=== PATIENT | female | born 1975 | race Native Hawaiian/Other Pacific Islander ===

== ENCOUNTER 2017-01-03 17:32 | Inpatient (IN) | payer OTHER ==
[~2017-01-03] VITALS: Ht 149.9 cm; Wt 99.8 kg
--- NOTE | 2017-01-03 08:00 | NUR ---
RECEIVED REPORT FROM ED RN FOR CONTINUITY OF CARE. 41 Y.O. FEMALE BROUGHT TO UNIT WITH DX: ESRD WITH FLUID OVERLOAD. PATIENT IS A&OX4, EXPLAINED PLAN OF CARE TO PATIENT. SHIFT ASSESSMENT DONE, VS TAKEN, PT STABLE. PATIENT HAS NO S/S OF RESPIRATORY DISTRESS NOTED ON 2L O2. PATIENT C/O GENERALIZED PAIN, WILL MEDICATE PER MD ORDER. IV TO LT HAND 22 GAUGE PATENT AND FLUSHED. PT HAS RT UPPER ARM GRAFT AND LT UPPER CHEST CATHETER FOR DIALYSIS. PT "SKIN INTACT", REFUSED SKIN ASSESSMENT ON LOWER HALF OF BODY. SAFETY/FALL PRECAUTIONS ENFORCED. CALL LIGHT WITHIN REACH. WILL CONTINUE TO MONITOR. Addendum: 01/04/17 at 0351 by Guera Garcia RN DISREGARD, WRONG TIME.
[~2017-01-03 17:32] MED LIST: COLACE100 M1 PO; HUMALOG100 UNITS/ SUBQ; KEFLEX500 MG PO; LIPITOR20 MG PO; MOBIC15 MG PO; NOVOLIN 70/30 710 M1 SUBQ; NOVOLOG MIX 70/10 ML SUBQ; RESTORIL15 MG PO; ULTRAM50 MG PO; VICODIN 5/500 M1 TAB PO; [UNRECOGNIZED DRUG - REMARK]
--- NOTE | 2017-01-03 17:32 | NUR ---
Patient BIBA at this time. Currently being triaged in OF.
[2017-01-03 17:41] VITALS: BP 112/57
--- NOTE | 2017-01-03 17:48 | NUR ---
Patient taken to bed 07 via gurney per EMS.
--- NOTE | 2017-01-03 17:53 | NUR ---
Dr. Neumann evaluating patient at bedside.
--- NOTE | 2017-01-03 18:08 | NUR ---
XRAY AT BEDSIDE.
[2017-01-03] MEDS ORDERED: KETOROLAC 30 MG/ML VIAL IVP PRN ×2 (19:00)
[2017-01-03] MEDS ORDERED: MORPHINE SULFATE 2 MG/ML SYR IVP PRN (19:00)
[2017-01-03] MEDS ORDERED: ONDANSETRON 4 MG/2 ML VIAL IVP PRN ×2 (19:00)
[2017-01-03] MEDS ORDERED: ACETAMINOPHEN 325 MG TAB PO PRN ×2 (19:00)
[2017-01-03] MEDS ORDERED: HYDROcodone/APAP 7.5/325 MG 1 TAB PO PRN ×2 (19:00)
--- NOTE | 2017-01-03 19:17 | NUR ---
Patient will be admitted to care of DR. GALEAS Admited to TELE, 110 B Will go to room. Belongings list completed. Report to NIA RATLIFF.
--- NOTE | 2017-01-03 19:19 | NUR ---
CRITICAL LAB REPORT RECEIVED. CREA 7.5. DR. GRAY AWARE.
--- NOTE | 2017-01-03 19:29 | NUR ---
REPORT GIVEN TO NIA WRIGHT. WILL CONTINUE TO CARE FOR THE PT
[2017-01-03 20:00] VITALS: BP 120/63
--- NOTE | 2017-01-03 20:00 | NUR ---
RECEIVED REPORT FROM ED RN FOR CONTINUITY OF CARE. 41 Y.O. FEMALE BROUGHT TO UNIT WITH DX: ESRD WITH FLUID OVERLOAD. PATIENT IS A&OX4, EXPLAINED PLAN OF CARE TO PATIENT. SHIFT ASSESSMENT DONE, VS TAKEN, PT STABLE. PATIENT HAS NO S/S OF RESPIRATORY DISTRESS NOTED ON 2L O2. PATIENT C/O GENERALIZED PAIN, WILL MEDICATE PER MD ORDER. IV TO LT HAND 22 GAUGE PATENT AND FLUSHED. PT HAS RT UPPER ARM GRAFT AND LT UPPER CHEST CATHETER FOR DIALYSIS. PT "SKIN INTACT", REFUSED SKIN ASSESSMENT ON LOWER HALF OF BODY. SAFETY/FALL PRECAUTIONS ENFORCED. CALL LIGHT WITHIN REACH. WILL CONTINUE TO MONITOR.
[2017-01-03] MEDS: MORPHINE SULFATE 2 MG/ML SYR IVP PRN (20:44)
--- NOTE | 2017-01-03 20:44 | NUR ---
PT C/O GENERALIZED PAIN, MEDICATED PER MD ORDER. DIALYSIS NURSE IN WITH PATIENT. CALL LIGHT WITHIN REACH.
--- NOTE | 2017-01-03 23:36 | NUR ---
VS TAKEN, STABLE. PATIENT IS SLEEPING. NO S/S OF RESPIRATORY DISTRESS NOTED ON ROOM AIR.
[2017-01-04] VITALS: BP 119/69
[2017-01-04] MEDS: MORPHINE SULFATE 2 MG/ML SYR IVP PRN ×3 (01:32→12:59)
--- NOTE | 2017-01-04 01:32 | NUR ---
PT C/O 08/30 PAIN, MEDICATED PER MD ORDER. CALL LIGHT WITHIN REACH.
[2017-01-04 04:00] VITALS: BP 131/75
--- NOTE | 2017-01-04 04:12 | NUR ---
VS TAKEN, STABLE. PT ASLEEP. PT DID NOT WANT SCDS AT THIS TIME. CALL LIGHT WITHIN REACH.
[2017-01-04] MEDS ORDERED: DEXTROSE 50% 50 ML SYR IVP PRN (04:15)
[2017-01-04] MEDS: BLOOD GLUCOSE MONITORING 1 DEV DEV FS SCH ×4 (06:05→20:32)
--- NOTE | 2017-01-04 06:05 | NUR ---
BLOOD SUGAR 130, NO COVERAGE NEEDED. PT HAVING INTERMITTENT COUGH WITH CLEAR SPUTUM.
--- NOTE | 2017-01-04 07:25 | NUR ---
ENDORSED PATIENT TO DAYSHIFT RN FOR CONTINUITY OF CARE, PATIENT IS AWAKE IN BED STABLE AT THIS TIME.
--- NOTE | 2017-01-04 07:30 | NUR ---
RECEIVED PT RESTING COMFORTABLY IN BED, AAOX4, ABLE TO VERBALIZE NEEDS; NO C/O PAIN OR S/S ACUTE DISTRESS AT THIS TIME. ASSISTED PT TO REPOSITION FOR COMFORT. ROUTINE/PLAN OF CARE DISCUSSED AND REVIEWED, PT VERBALIZES UNDERSTANDING AND COMPLIANCE; PT SEEN AND ASSESSED BY DR GALEAS AND DR BAILEY AT BEDSIDE. IV SL TO LEFT HAND, SITE ASYMPTOMATIC. LEGALLY BLIND, SAFETY PRECAUTIONS OBSERVED AND MAINTAINED, CALL LIGHT IN REACH. WILL CONTINUE TO MONITOR.
[2017-01-04 08:00] VITALS: BP 136/75
--- NOTE | 2017-01-04 08:57 | NUR ---
VSS; PT REFUSING PO MEDS AT THIS TIME DUE TO NAUSEA, ADMINISTERED ZOFRAN IVP; MORPHINE IVP GIVEN FOR C/O SEVERE BACK PAIN, SEE PAIN ASSESSMENT. WILL CONTINUE TO MONITOR PT.
[2017-01-04] MEDS ORDERED: DOCUSATE SODIUM 100 MG GELCAP PO SCH (09:00)
[2017-01-04] MEDS ORDERED: FAMOTIDINE 20 MG TAB PO SCH (09:00)
[2017-01-04] MEDS: FAMOTIDINE 20 MG TAB PO SCH ×2 (09:00→12:54)
[2017-01-04] MEDS: DOCUSATE SODIUM 100 MG GELCAP PO SCH ×2 (09:00→12:54)
--- NOTE | 2017-01-04 10:02 | NUR ---
PATIENT HAS BEEN SCREENED AND CATEGORIZED HIGH NUTRITION RISK. PATIENT WILL BE SEEN WITHIN 1-2 DAYS OF ADMISSION. 01/04/17-01/05/[address]
--- NOTE | 2017-01-04 10:33 | NUR ---
PT SEEN AND ASSESSED BY DR WORKMAN, NEW ORDERS ACKNOWLEDGED AND CARRIED OUT.
--- NOTE | 2017-01-04 10:59 | NUR ---
ASSISTED PT WITH AM CARE.
[2017-01-04 12:00] VITALS: BP 108/81
--- NOTE | 2017-01-04 13:00 | NUR ---
VSS, NSR. MORPHINE IVP GIVEN ORDERED WITH EDUCATION FOR C/O RECURRING BACK PAIN, SEE PAIN ASSESSMENT. WILL CONTINUE TO MONITOR.
--- NOTE | 2017-01-04 14:04 | NUR ---
SS NOTE: I SPOKE WITH PT BEDSIDE AND PROVIDED HER WITH [facility] INFORMATION SO THAT PT CAN HAVE HER MEDICATIONS DELIVERED TO HER HOME.
[2017-01-04 16:00] VITALS: BP 110/74
[2017-01-04] MEDS: HYDROmorphone 1 MG/ML AMP IVP PRN (16:32)
[2017-01-04] MEDS: INSULIN ASPART SLIDING SCALE 100 UNITS/ML VIAL SUBQ PRN ×2 (16:41→20:28)
[2017-01-04] MEDS ORDERED: PROMETH/CODEINE 6.25-10MG/5ML 5 ML UDC PO PRN (17:55)
--- NOTE | 2017-01-04 19:15 | NUR ---
RECEIVED REPORT FROM DAY RN AT BEDSIDE, PATIENT IS AAO X4, PATIENT IS ON ROOM AIR, NO SOB OR SIGN OF DISTRESS, PATIENT HAS IV TO LEFT HAND#22 PATENT AND SALINE LOCKED. PATIENT SKIN IS INTACT. PATIENT HAS GRAFT TO ANNA FOR HD, BRUIT AND THRILL PRESENT. PATIENT ALSO HAS L UPPER CHEST CATHETER SALINE LOCKED. PATIENT IS BLIND. DISCUSSED PLAN OF CARE WITH PATIENT, PATIENT VERBALIZED UNDERSTANDING. SAFETY MEASURES CHECKED, CALL LIGHT WITHIN REACH. WILL CONTINUE TO MONITOR.
--- NOTE | 2017-01-04 19:24 | NUR ---
CONDITION STABLE, ENDORSED PLAN OF CARE TO CASH MANAGER RN.
[2017-01-04 20:00] VITALS: BP 143/79
[2017-01-04] MEDS: ATORVASTATIN 20 MG TAB PO SCH (20:23)
--- NOTE | 2017-01-04 20:33 | NUR ---
ADMINISTERED PM MEDS, PATIENT TOLERATED WELL, CALL LIGHT WITHIN REACH, WILL CONTINUE TO MONITOR.
--- NOTE | 2017-01-04 21:00 | NUR ---
DIALYSIS NURSE CALLED INQUIRING ABOUT PATIENT DIALYSIS SCHEDULE, CONFIRMED THAT PATIENT IS DUE FOR DIALYSIS 01/05, GAVE DIALYSIS PATIENT'S ROOM NUMBER, CONFIRMED.
--- NOTE | 2017-01-04 23:00 | NUR ---
PATIENT SLEEPING, NO SOB OR SIGN OF DISTRESS, CALL LIGHT WITHIN REACH. WILL CONTINUE TO MONITOR.
--- NOTE | 2017-01-05 00:10 | NUR ---
PATIENT SLEEPING, PATIENT PLACED ON NPO STATUS, PATIENT AWARE, NO SOB OR SIGN OF DISTRESS, CALL LIGHT WITHIN REACH. WILL CONTINUE TO MONITOR.
--- NOTE | 2017-01-05 02:11 | NUR ---
PATIENT SLEEPING, NO SOB OR SIGN OF DISTRESS, CALL LIGHT WITHIN REACH. WILL CONTINUE TO MONITOR.
[2017-01-05] MEDS: HYDROmorphone 1 MG/ML AMP IVP PRN ×2 (02:30→18:55)
--- NOTE | 2017-01-05 03:17 | NUR ---
PATIENT VOMITED 200CC. PATIENT STATED SHE GOT SICK FROM BEING NERVOUS ABOUT HER POSSIBLE PROCEDURE. PATIENT STATES SHE ALWAYS GETS NERVOUS. OFFERED PATIENT SONY, PATIENT STATED SHE DID NOT WANT ANYTHING AND SHE WOULD TRY MUSIC ON HER PHONE TO RELAX HER. WILL CONTINUE TO MONITOR.
[2017-01-05 04:00] VITALS: BP 156/85
--- NOTE | 2017-01-05 05:10 | NUR ---
PATIENT SLEEPING, VITAL SIGNS STABLE, NO SOB OR SIGN OF DISTRESS, CALL LIGHT WITHIN REACH. WILL CONTINUE TO MONITOR.
[2017-01-05] MEDS: BLOOD GLUCOSE MONITORING 1 DEV DEV FS SCH ×4 (06:38→20:11)
--- NOTE | 2017-01-05 07:30 | NUR ---
ENDORSED PATIENT TO DAY RN AT BEDSIDE, PATIENT IN STABLE CONDITION
--- NOTE | 2017-01-05 07:31 | NUR ---
RECEIVED REPORT FROM BIOLOGICS SPECIALIST NIA BENITO. PT IS SLEEPING, A/O X 4, LEGALLY BLIND, AMBULATORY WITH ASSIST. LEFT HAND 22G SL IS INTACT. LEFT UPPER CHEST CATHETER, AND ANNA GRAFT. NO S/S OF ACUTE CARDIAC/RESPIRATORY DISTRESS OR DISCOMFORT. SAFETY MEASURES IN PLACE, CALL LIGHT WITHIN REACH. WILL CONTINUE PLAN OF CARE AND CONTINUE TO MONITOR.
[2017-01-05] MEDS ORDERED: INSULIN HUMAN REGULAR 100 UNITS/ML 10 ML VIAL SUBQ SCH (08:00)
[2017-01-05] MEDS: EPOETIN ALFA 10,000 UNITS/ML VIAL IV SCH (09:00)
[2017-01-05] MEDS ORDERED: guaiFENesin 600 MG TABER PO SCH (09:17)
[2017-01-05] MEDS: DEXT 5% / NACL 0.9% 500 ML IV SCH (10:08)
--- NOTE | 2017-01-05 10:54 | NUR ---
PT IS AWAKE, FEELING ANXIOUS. NO S/S OF ACUTE DISTRESS. PT IN PAIN, WILL MEDICATE. CALL LIGHT WITHIN REACH. WILL CONTINUE TO MONITOR.
[2017-01-05] MEDS: MORPHINE SULFATE 2 MG/ML SYR IVP PRN (11:04)
--- NOTE | 2017-01-05 12:11 | NUR ---
01/05/17 RD INITIAL ASSESSMENT COMPLETED PLEASE REFER TO NUTRITION ASSESSMENT UNDER CARE ACTIVITY FOR ESTIMATED NUTRITIONAL NEEDS. RD RECOMMENDATIONS: 1. CONTINUE NPO MEDICALLY APPROPRIATE PER MD 2. WHEN MEDICALLY APPROPRIATE CONSIDER ADVANCE DIET TOLERATED TO RENAL 3. RD WILL F/U 3-5 DAYS; MODERATE RISK. ZION LANDON RD
--- NOTE | 2017-01-05 12:43 | NUR ---
TRAFFIC ATTENDANT PRESENT. PT STATES SHE FEEL LIGHTHEADED FROM NOT EATING. VS STABLE. NO S/S OF ACUTE DISTRESS OR DISCOMFORT. FAMILY AT BEDSIDE. CALL LIGHT WITHIN REACH. WILL CONTINUE TO MONITOR. Addendum: 01/05/17 at 1245 by Catracho Rm RN BP 132/79, 71, 100%, 98.4F
--- NOTE | 2017-01-05 15:30 | NUR ---
DIALYSIS STILL PROCESSING. PT TOLERATING DIALYSIS WELL, NO S/S OF ACUTE DISTRESS OR DISCOMFORT. CALL LIGHT WITHIN REACH. WILL CONTINUE TO MONITOR.
[2017-01-05 16:00] VITALS: BP 131/73
[2017-01-05] MEDS: INSULIN ASPART SLIDING SCALE 100 UNITS/ML VIAL SUBQ PRN ×2 (17:05→20:09)
--- NOTE | 2017-01-05 17:24 | NUR ---
PT IS RESTING IN BED, ON HER CELL PHONE. PT HAS NO S/S OF ACUTE DISTRESS OR DISCOMFORT. CALL LIGHT WITHIN REACH. WILL CONTINUE TO MONITOR.
--- NOTE | 2017-01-05 19:12 | NUR ---
ENDORSED REPORT TO COMMUNICATIONS SENIOR ASSOCIATE NIA BENITO. PT IS RESTING, MOTHER AT BEDSIDE. NO S/S OF ACUTE DISTRESS OR DISCOMFORT. PT IN STABLE CONDITION. CALL LIGHT WITHIN REACH.
--- NOTE | 2017-01-05 19:15 | NUR ---
RECEIVED REPORT FROM DAY RN AT BEDSIDE, PATIENT IS AAOX4, RESTING IN BED, PATIENT IS LEGALLY BIND, ON ROOM AIR, NO SOB OR SIGN OF DISTRESS. PATIENT HAS ANNA GRAFT FOR HD, BRUIT AND THRILL PRESENT, CATHETER TO JOSEFA CHEST PRESENT. IV TO LH 22G PATENT INTACT AND ASYMPTOMATIC. PATIENT IS TO BE NPO AFTER MIDNIGHT FOR PENDING PROCEDURE, PATIENT AWARE. DISCUSSED PLAN OF CARE WITH PATIENT, PATIENT VERBALIZED UNDERSTANDING, SAFETY MEASURES CHECKED, CALL LIGHT WITHIN REACH. WILL CONTINUE TO MONITOR.
[2017-01-05 20:00] VITALS: BP 124/78
[2017-01-05] MEDS: guaiFENesin 600 MG TABER PO SCH (20:05)
[2017-01-05] MEDS: ATORVASTATIN 20 MG TAB PO SCH (20:05)
--- NOTE | 2017-01-05 20:15 | NUR ---
ADMINISTERED PM MEDS, PATIENT TOLERATED WELL, CALL LIGHT WITHIN REACH. WILL CONTINUE TO MONITOR
--- NOTE | 2017-01-05 21:27 | NUR ---
ASSISTED PATIENT UP TO RESTROOM. PATIENT APPEARS SOB WITH ACTIVITY, PATIENT STATED SHE FELT FINE. ASSISTED BACK TO BED, CALL LIGHT WITHIN REACH. WILL CONTINUE TO MONITOR.
--- NOTE | 2017-01-05 23:19 | NUR ---
PATIENT SLEEPING COMFORTABLE IN BED, NO SOB OR SIGN OF DISTRESS, CALL LIGHT WITHIN REACH, WILL CONTINUE TO MONITOR.
--- NOTE | 2017-01-06 01:44 | NUR ---
PATIENT SLEEPING, NO SOB OR SIGN OF DISTRESS, CALL LIGHT WITHIN REACH. WILL CONTINUE TO MONITOR.
--- NOTE | 2017-01-06 03:05 | NUR ---
PATIENT SLEEPING, NO SOB OR SIGN OF DISTRESS, CALL LIGHT WITHIN REACH. WILL CONTINUE TO MONITOR.
[2017-01-06 04:00] VITALS: BP 166/72
--- NOTE | 2017-01-06 04:48 | NUR ---
VITAL SIGNS STABLE, NO SOB OR SIGN OF DISTRESS, CALL LIGHT WITHIN REACH. WILL CONTINUE TO MONITOR.
[2017-01-06] MEDS: BLOOD GLUCOSE MONITORING 1 DEV DEV FS SCH ×4 (06:26→21:00)
--- NOTE | 2017-01-06 06:41 | NUR ---
PATIENT UP RESTING IN BED, CONSENT WAS OBTAINED FOR PROCEDURE TO REMOVE LEFT CHEST CATHETER. NO SOB OR SIGN OF DISTRESS, CALL LIGHT WITHIN REACH. WILL CONTINUE TO MONITOR
--- NOTE | 2017-01-06 07:20 | NUR ---
ENDORSED PATIENT TO DAY RN AT BEDSIDE, PATIENT IN STABLE CONDITION
--- NOTE | 2017-01-06 07:30 | NUR ---
RECEIVED REPORT FROM THE RESIDENTIAL SOLAR CONSULTANT NURSE THONG AT BEDSIDE FOR CONTINUITY OF CARE. PATIENT IS AWAKE, ALERT, ORIENTEDX4. LEGALLY BLIND. IV ON THE LEFT HAND INTACT AND PATENT. INITIAL ASSESSMENT DONE. SKIN INTACT, ABLE TO AMBULATE TO THE BATHROOM WITH ASSISTANCE. COMPLAINED OF BACK PAIN. WILL PROVIDE MEDICATION. ON ROOM AIR, NO /S S OF SOB OR OTHER DISTRESS. VITALS TAKEN AND BLOOD PRESSURE ELEVATED TO 141/85, WILL RECHECK. OTHER VITALS IS WITHIN THE NORMAL LIMIT. SAFETY CHECKED DONE AND WILL CONTINUE TO MONITOR. CALL LIGHT WITHIN REACH.
[2017-01-06 08:00] VITALS: BP 141/85
[2017-01-06] MEDS: DOCUSATE SODIUM 100 MG GELCAP PO SCH (08:56)
[2017-01-06] MEDS: FAMOTIDINE 20 MG TAB PO SCH (08:56)
[2017-01-06] MEDS: MORPHINE SULFATE 2 MG/ML SYR IVP PRN ×4 (08:59→23:55)
[2017-01-06] MEDS: guaiFENesin 600 MG TABER PO SCH ×2 (08:59→21:19)
--- NOTE | 2017-01-06 09:08 | NUR ---
DUE MEDS GIVE. MORPHINE GIVE FOR COMPLAINED OF PAIN OF 05/30. WILL REASSESS PAIN LATER.
[2017-01-06] MEDS: DEXT 5% / NACL 0.9% 500 ML IV SCH (09:15)
--- NOTE | 2017-01-06 09:50 | NUR ---
LEFT TUNNEL DIALYSIS CATH REMOVED BY MD. PATIENT COMPLAINED OF NO PAIN. NO S/S OF BLEEDING. WILL CONTINUE TO MONITOR.
--- NOTE | 2017-01-06 11:30 | NUR ---
BLOOD SUGAR CHECKED, 219 COVERAGE GIVEN. LEVAQUIN STARTED INFUSING. WILL CONTINUE TO MONITOR.
[2017-01-06] MEDS ORDERED: LEVOFLOXACIN 500 MG/D5W PREMIX 100 ML IV SCH (12:00)
[2017-01-06] MEDS: INSULIN ASPART SLIDING SCALE 100 UNITS/ML VIAL SUBQ PRN ×3 (12:04→21:27)
--- NOTE | 2017-01-06 13:03 | NUR ---
Patient's Plan of Care was discussed and reviewed with DRAFTER AUTOMOTIVE DESIGN LAYOUT: INDU Addendum: 01/06/17 at 1422 by Lisa White RN WRONG PATIENT
[2017-01-06] MEDS: ALBUTEROL SULFATE/IPRATROPIU 3 ML SOL IH SCH ×2 (13:21→19:00)
[2017-01-06] MEDS: CLINDAMYCIN 600 MG in DEXTROSE 5% 50 ML IV SCH ×2 (14:17→21:19)
--- NOTE | 2017-01-06 14:23 | NUR ---
CLINDAMYCIN GIVEN, PATIENT TOLERATING WELL. WILL CONTINUE TO MONITOR. CALL LIGHT WITHIN REACH.
--- NOTE | 2017-01-06 14:33 | NUR ---
PT BLIND NEEDS CONTINUED ID INSTRUCT RN AWARE
[2017-01-06] MEDS ORDERED: CLEOCIN HCL300 MG PO (14:35)
[2017-01-06] MEDS ORDERED: LEVAQUIN750 MG PO (14:35)
[2017-01-06] MEDS ORDERED: ATORVASTATIN CA20 MG PO (14:43)
[2017-01-06] MEDS ORDERED: FLORASTOR 33 MG1 CAP PO (14:43)
[2017-01-06] MEDS ORDERED: GLUCOTROL XL5 M1 PO (14:44)
--- NOTE | 2017-01-06 15:00 | NUR ---
PATIENT COMPLAINED OF HEADACHE AND LOWER BACK PAIN. RECHECK BLOOD PRESSURE 132/72 AND HEART RATE 77. MORPHINE GIVEN. WILL CONTINUE TO MONITOR.
--- NOTE | 2017-01-06 15:14 | NUR ---
DIALYSIS NURSE AT BEDSIDE ABOUT TO START DIALYSIS. PATIENT IS AWAKE AND ALERT. NO S/S OF DISTRESS. CALL LIGHT WITHIN REACH.
--- NOTE | 2017-01-06 15:23 | NUR ---
SS NOTE: DELGADO OGLESBY FROM [facility] ([phone]), PT'S MEDICATIONS WILL BE DELIVERED TO THE [facility] AT NOON TOMORROW.
[2017-01-06 16:00] VITALS: BP 112/53
--- NOTE | 2017-01-06 16:45 | NUR ---
VITALS TAKEN AND WITHIN THE NORMAL LIMIT. BLOOD SUGAR LEVEL CHECKED 177 INSULIN COVERAGE WILL BE PROVIDED. DIALYSIS NURSE AT BEDSIDE AND CONNECTED TO DIALYSIS. CALL LIGHT WITHIN REACH.
--- NOTE | 2017-01-06 17:23 | NUR ---
INSULIN COVERAGE GIVEN. PATIENT ON DIALYSIS. DIALYSIS NURSES AT BEDSIDE. CALL LIGHT WITHIN REACH. WILL CONTINUE TO MONITOR.
--- NOTE | 2017-01-06 17:40 | NUR ---
DIALYSIS DONE, OUTPUT 2L. PATIENT IS AWAKE NO COMPLAINED OF ANY PAIN AT THIS TIME OR S/S OF ANY DISTRESS. WILL CONTINUE TO MONITOR. CALL LIGHT WITHIN REACH.
--- NOTE | 2017-01-06 18:25 | NUR ---
PATIENT EATING DINNER. ASSISTED CUTTING HER FOOD AND OPENING HER JUICE. NO COMPLAINED OF ANY DISTRESS. CALL LIGHT WITHIN REACH.
--- NOTE | 2017-01-06 19:30 | NUR ---
REPORT GIVEN TO HEEL MOLDER NURSE LUIS MANUEL AT BEDSIDE FOR CONTINUITY OF CARE. PATIENT ON STABLE CONDITION AND ALL NEEDS ARE MET AT THIS TIME.
--- NOTE | 2017-01-06 19:35 | NUR ---
RECEIVED FROM AM RN IN BED AWAKE AND ALERT. ORIENTED X 4. CLEAR SPEECH. DX. OF ESRD WITH FLUID OVERLOAD. HEMODIALYSIS DONE TODAY. ABLE TO VERBALIZE NEEDS WELL. ANNA HD GRAFT INTACT AND NO BLEEDING. WITH LEFT HAND#22 IVF SITE . INTACT AND NO INFILTRATION. COMPLAINED OF PAIN TO BACK. WILL MEDICATE REQUESTED.
--- NOTE | 2017-01-06 19:46 | NUR ---
MEDICATED WITH MORPHINE REQUESTED. PT. ABLE TO VERBALIZE WELL AND USE CALL LIGHT. LEGALLY BLIND. ENCOURAGED TO CALL FOR ANY HELP SHE MIGHT NEED.
[2017-01-06] MEDS: ATORVASTATIN 20 MG TAB PO SCH (21:18)
[2017-01-06] MEDS: SACCHAROMYCES 250 MG CAP PO SCH (21:18)
--- NOTE | 2017-01-06 23:55 | NUR ---
PT. MEDICATED WITH MORPHINE IVP REQUESTED. NO FURTHER REQUESTS. USES CALL LIGHT FOR HELP.
[2017-01-07 00:01] VITALS: BP 119/70
[2017-01-07] MEDS: ALBUTEROL SULFATE/IPRATROPIU 3 ML SOL IH SCH ×2 (01:00→07:00)
--- NOTE | 2017-01-07 01:29 | NUR ---
PT REFUSED HHNTX AT THIS TIME. NO SOB OR RESP DISTRESS NOTED.
[2017-01-07 02:04] VITALS: BP 119/70
--- NOTE | 2017-01-07 03:35 | NUR ---
SLEEPING . NO RESTLESSNESS. CALL LIGHT WITH IN REACH.
[2017-01-07] MEDS: CLINDAMYCIN 600 MG in DEXTROSE 5% 50 ML IV SCH ×2 (04:15→12:24)
[2017-01-07] MEDS: BLOOD GLUCOSE MONITORING 1 DEV DEV FS SCH ×2 (06:11→12:03)
--- NOTE | 2017-01-07 06:13 | NUR ---
BLOOD SUGAR PER FINGERSTICK TAKEN . 145 MG/DL. NO RISS COVERAGE. SLEEPING WELL. WAKES UP EASILY WHEN TOUCHED OR CALLED BY NAME. PT. LEGALLY BLIND. ASSISTED WITH ADLS.
--- NOTE | 2017-01-07 07:01 | NUR ---
PT CLAIMS BREATHING RX MAKES HER NAUSEATED NO RESP DISTRESS NOTED
--- NOTE | 2017-01-07 07:20 | NUR ---
RECEIVED REPORT FROM THE MECHANICAL ENGINEER NURSE LUIS MANUEL AT BEDSIDE FOR CONTINUITY OF CARE. PATIENT IS AWAKE, ALERT, ORIENTEDX4. LEGALLY BLIND. IV ON THE LEFT HAND INTACT AND PATENT. INITIAL ASSESSMENT DONE. SKIN INTACT, ABLE TO AMBULATE TO THE BATHROOM WITH ASSISTANCE. ON ROOM AIR, NO /S S OF SOB OR OTHER DISTRESS. VITALS TAKEN AND BLOOD PRESSURE ELEVATED TO 159/86, WILL RECHECK. OTHER VITALS IS WITHIN THE NORMAL LIMIT. SAFETY CHECKED DONE AND WILL CONTINUE TO MONITOR. CALL LIGHT WITHIN REACH.
[2017-01-07] MEDS ORDERED: ALBUTEROL SULFATE/IPRATROPIU 3 ML SOL IH PRN ×2 (07:25→07:29)
[2017-01-07 07:59] VITALS: BP 159/86
[2017-01-07] MEDS: EPOETIN ALFA 10,000 UNITS/ML VIAL IV SCH (09:00)
--- NOTE | 2017-01-07 09:00 | NUR ---
DUE MEDS GIVEN, AND NORCO FOR PATIENT COMPLAINED OF LOWER BACK PAIN. WILL CONTINUE TO MONITOR. FAMILY AT BEDSIDE. CALL LIGHT WITHIN REACH.
[2017-01-07] MEDS: FAMOTIDINE 20 MG TAB PO SCH (09:29)
[2017-01-07] MEDS: guaiFENesin 600 MG TABER PO SCH (09:29)
[2017-01-07] MEDS: DOCUSATE SODIUM 100 MG GELCAP PO SCH (09:30)
[2017-01-07] MEDS: SACCHAROMYCES 250 MG CAP PO SCH (09:30)
--- NOTE | 2017-01-07 10:11 | NUR ---
PATIENT SLEEPING, NO S/S OF DISTRESS WILL CONTINUE TO MONITOR.
--- NOTE | 2017-01-07 10:44 | NUR ---
SS NOTE: PER BRITNEY FROM [facility] ([phone]), THEY WILL SEND A NURSE TO SEE PT TOMORROW. Addendum: 01/07/17 at 1258 by Althea Power SS CORRECTION: A NURSE WILL SEE PT AT HOME ON TUESDAY SINCE PT HAS DIALYSIS TOMORROW
[2017-01-07] MEDS: INSULIN ASPART SLIDING SCALE 100 UNITS/ML VIAL SUBQ PRN (12:21)
--- NOTE | 2017-01-07 13:00 | NUR ---
PATIENT GIVEN EDUCATION ABOUT DISCHARGED INSTRUCTION, FOLLOW UP APPOINTMENT WITH PRIMARY CARE PROVIDER, AND PRESCRIPTION. PATIENT VERBALIZED UNDERSTANDING. PATIENT'S MOTHER SINGED ALL DISCHARGED PAPER AND COPY OF ALL DISCHARGED INSTRUCTION GIVEN TO PATIENT. PATIENT WILL BE DISCHARGED TO HOME IN STABLE CONDITION WITH FAMILY.
--- NOTE | 2017-01-07 13:40 | NUR ---
PATIENT ASSISTED TO THE LOBBY IN STABLE CONDITION. DISCHARGED TO HOME WITH FAMILY.
== END 2017-01-07 13:40 | disposition home health service (06) | DRG 177 ==
LOC: MED 17:32 → MTU 19:00
PROVIDERS: ADMIT Family Medicine; ATTEND Family Medicine
PROC: 5A1D60Z (ICD-10-PCS; 2017-01-03)
PROC: 05PYX3Z Removal of Infusion Device from Upper Vein, External Approach (ICD-10-PCS; principal; 2017-01-06)
DX: J69.0 Pneumonitis due to inhalation of food and vomit (principal); N18.6 End stage renal disease; I12.0 Hypertensive chronic kidney disease with stage 5 chronic kidney disease or end stage renal disease; Z68.41 Body mass index [BMI] 40.0-44.9, adult; B37.49 Other urogenital candidiasis; E11.22 Type 2 diabetes mellitus with diabetic chronic kidney disease; E11.65 Type 2 diabetes mellitus with hyperglycemia; E11.3593 Type 2 diabetes mellitus with proliferative diabetic retinopathy without macular edema, bilateral; E11.40 Type 2 diabetes mellitus with diabetic neuropathy, unspecified; E83.39 Other disorders of phosphorus metabolism; E83.51 Hypocalcemia; E78.5 Hyperlipidemia, unspecified; E66.01 Morbid (severe) obesity due to excess calories; E86.0 Dehydration; D63.8 Anemia in other chronic diseases classified elsewhere; H54.0 Blindness, both eyes; H40.9 Unspecified glaucoma; Z96.641 Presence of right artificial hip joint; Z99.2 Dependence on renal dialysis; Z88.0 Allergy status to penicillin; Z79.4 Long term (current) use of insulin; Z86.73 Personal history of transient ischemic attack (TIA), and cerebral infarction without residual deficits; Z82.49 Family history of ischemic heart disease and other diseases of the circulatory system; Z83.3 Family history of diabetes mellitus